=== PATIENT | female | born 1995 | race Caucasian/White ===

== ENCOUNTER → 2021-12-25 | Outpatient (CLI) | payer BC ==
--- NOTE | 2021-12-25 11:30 | XR ---
EXAMINATION TYPE: XR humerus LT DATE OF EXAM: 12/25/2021 COMPARISON: NONE HISTORY: Pain TECHNIQUE: 2 views submitted. FINDINGS: The osseous structures are intact and the joint spaces are preserved. There is a linear foreign body along the distal margin of the humerus on the lateral view extending to the level of the elbow joint . Appears to be in the subcutaneous tissues along the ulnar aspect of the soft tissues. IMPRESSION: 1. Linear foreign body likely corresponding to the control implant along the subcutaneous tissu e of the distal upper arm ulnar aspect. Correlate clinically.
== END | disposition home or self-care (01) ==
LOC: RADXRMAIN 11:11
PROVIDERS: ATTEND Obstetrics & Gynecology
DX: S40.852A Superficial foreign body of left upper arm, initial encounter (principal)

== ENCOUNTER → 2021-12-27 | Outpatient (CLI) | payer BC ==
[2021-12-27 14:47] LABS: Eosinophils # (A) 0.28 X 10*3/uL (0.04-0.35); Eosinophils % (A) 2.8 %; HCT 44.5 % (37.2-46.3); Immature Grans, Automated 0.3 %; Lymphocytes # (A) 2.87 X 10*3/uL (0.90-5.00); Lymphocytes % (A) 28.5 %; MCH 26.5 pg (27.0-32.0); MCHC 31.5 g/dL (32.0-37.0); MCV 84.1 fL (80.0-97.0); Mean Platelet Volume 10.7 fL (9.5-12.2); Monocytes # (A) 0.45 X 10*3/uL (0.20-1.00); Monocytes % (A) 4.5 %; NRBC Per 100 WBC 0 /100 WBCS (0.0-0.0); Neutrophils # (A) 6.35 X 10*3/uL (1.80-7.70); Neutrophils % (A) 62.9 %; Platelet Count 307 X 10*3/uL (140-440); RBC 5.29 X 10*6/uL (4.10-5.20); RDW 13.2 % (11.5-14.5); WBC 10.08 X 10*3/uL (4.50-10.00)
== END | disposition home or self-care (01) ==
LOC: LABPAT 09:13
PROVIDERS: ATTEND Obstetrics & Gynecology
DX: Z30.46 Encounter for surveillance of implantable subdermal contraceptive (principal)
CPT/HCPCS: 36415; 85025; 93005

== ENCOUNTER 2022-01-02 08:43 | Day surgery (SDC) | payer BC ==
[2021-12-27 13:43] VITALS: BMI 55.6
[~2022-01-02 08:43] MED LIST: DEXAMETHASONE SOD PHOSPHATE 4 MG/ML 1 ML VIAL IV ONE; HYDROmorphone 0.5 MG/0.5 ML SYRINGE IVP PRN; LACTATED RINGERS 1,000 ML IV SCH; LIDOCAINE 1% (10MG/ML) FOR IV START INTRADERMA PRN; MIDAZOLAM 2 MG/2 ML VIAL IV PRN; ONDANSETRON 4 MG/2 ML VIAL IVP ONE; Pre Op ABX Message 1 EACH MISC MISCELLANE ONE
[2022-01-02] MEDS ORDERED: METOPROLOL TARTRATE 5 MG/5 ML VIAL IVP ONE (10:20)
[2022-01-02] MEDS ORDERED: SUCCINYLCHOLINE CHLORIDE VIAL 200 MG/10 ML VIAL IV ONE (10:22)
[2022-01-02] MEDS ORDERED: PROPOFOL 10 MG/ML 20 ML VIAL IV ONE (10:22)
[2022-01-02] MEDS ORDERED: KETOROLAC 15 MG/ML 1 ML VIAL ONE (10:22)
[2022-01-02] MEDS ORDERED: MIDAZOLAM 2 MG/2 ML VIAL ONE (10:22)
[2022-01-02] MEDS ORDERED: fentaNYL (PF) 50 MCG/ML 2 ML AMP ONE (10:22)
[2022-01-02] MEDS ORDERED: LIDOCAINE 2% INJ 20 MG/ML (2 ML VIAL) ONE (10:22)
[2022-01-02] MEDS ORDERED: LIDOCAINE 4% LTA KIT (4 ML) TOPICAL ONE (10:22)
[2022-01-02] MEDS ORDERED: SODIUM CHLORIDE 0.9% 50 ML with ceFAZolin 3,000 MG IV ONE ×2 (11:19)
[2022-01-02] MEDS ORDERED: LACTATED RINGERS 1,000 ML IV ONE ×2 (11:24→12:25)
--- NOTE | 2022-01-02 11:40 | P.OP ---
Date of Procedure: 01/02/22 Preoperative Diagnosis: Migrated Nexplanon luis alfredo Postoperative Diagnosis: same Anesthesia: MAYTEA Surgeon: Chasidy Dickreson Estimated Blood Loss (ml): 20 IV fluids (ml): 800 Urine output (ml): 0 Pathology: none sent Condition: stable Disposition: PACU Description of Procedure: Patient is brought to the operating suite and placed in the dorsal supine position. The left upper extremity is prepped and draped in the usual sterile fashion. The appropriate timeout is performed to assure proper patient and procedural identification. The C-arm is brought into the operative room, and x- rays are taken. An incision is made in the left upper extremity approximately 6 cm superior to the elbow joint. With multiple imaging, and a hemostat, the luis alfredo is not able to be located. At this time I asked for the assistance of Dr. Kevin Fraser, more familiar with the anatomy of the upper extremity. Dr. Stephens joint is in the room, additional x-rays revealed that the luis alfredo has rotated inferior and posterior to the original insertion site. A second incision was therefore made, and the luis alfredo is identified and brought out intact. These 2 incisions are closed with 3-0 undyed Vicryl. Steri-Strips and Mastisol are applied to the wounds. 3g of Ancef are given. The fresh nexplanon luis alfredo is placed in the left upper extremity in the appropriate depth, just underneath the skin where it is able to be palpated in the subcutaneous tissue.Lot# [id number]. Toradol is given prior to leaving the operative suite.
[2022-01-02 11:48] VITALS: TEMP 97.2
[2022-01-02] MEDS: hydrALAZINE HCL 20 MG/ML 1 ML VIAL IV ONE ×2 (11:51→12:01)
[2022-01-02 12:21] VITALS: RESP 16
[2022-01-02] MEDS ORDERED: MIDAZOLAM 2 MG/2 ML VIAL IVP ONE (12:35)
--- NOTE | 2022-01-02 13:07 | FL ---
Fluoroscopy HISTORY: Migrated implant 24 seconds fluoroscopy time supplied to the referring clinician. 5 intraoperative C-arm images docum ent the procedure. See dictated report from gynecology.
[2022-01-02 13:19] VITALS: BP 156/88; PULSE 89
== END 2022-01-02 13:20 | disposition home or self-care (01) ==
LOC: OR 08:43
PROVIDERS: ATTEND Obstetrics & Gynecology
DX: Z30.46 Encounter for surveillance of implantable subdermal contraceptive (principal); N91.2 Amenorrhea, unspecified; Z79.899 Other long term (current) drug therapy; Z88.8 Allergy status to other drugs, medicaments and biological substances; Z80.49 Family history of malignant neoplasm of other genital organs; Z81.8 Family history of other mental and behavioral disorders; I10 Essential (primary) hypertension; F32.A Depression, unspecified; F17.290 Nicotine dependence, other tobacco product, uncomplicated; K21.9 Gastro-esophageal reflux disease without esophagitis; E66.01 Morbid (severe) obesity due to excess calories; Z68.43 Body mass index [BMI] 50.0-59.9, adult
CPT/HCPCS: 81025; 76000; 11983; J2250; J0330; J0360; J1100; J2405; J0690; J3010; J1885; J2704; J2001

== ENCOUNTER → 2022-06-19 | Outpatient (CLI) | payer BC, OTHER ==
--- NOTE | 2022-06-19 16:37 | CT ---
EXAMINATION TYPE: CT wrist LT wo con DATE OF EXAM: 06/19/2022 COMPARISON: None HISTORY: Fx to distal radius on 06/06/22 pt fell down flight of stairs. CT DLP: 157.[address] of the left wrist with reconstruction imaging. TECHNIQUE: Unenhanced CT of the left wrist was performed with bone and soft tissue window settings brothers bmitted in the axial coronal and sagittal planes. At a separate workstation [id number] TR imaging was obtai denise. FINDINGS: There is comminuted fracture involving the distal radius with intra-articular extension. Displacement of approximately 4 mm. There is also fracture of the ulnar styloid process. Surrounding soft tissue edema. No additional fractures identified this time. IMPRESSION: 1. Comminuted distal radial fracture as noted above with intra-articular extension. Ulnar styloid com ponent.
== END | disposition home or self-care (01) ==
LOC: RADCTMAIN 14:17
PROVIDERS: ATTEND Orthopaedic Surgery Hand Surgery
DX: S52.572A Other intraarticular fracture of lower end of left radius, initial encounter for closed fracture (principal)